=== PATIENT | female | born 1965 | race Caucasian/White ===

== ENCOUNTER 2020-12-03 21:57 | Emergency (ER) | payer SELFPAY ==
[2020-12-03 21:59] VITALS: BP 153/86; PULSE 69; RESP 14; TEMP 36.4; O2SAT 95; BMI 30.1
--- NOTE | 2020-12-03 22:24 | CT_ITS ---
PROCEDURE: CT ABDOMEN PELVIS W CON CLINICAL INDICATION: abd pain COMPARISON: No exams were available for comparison TECHNIQUE: IV Contrast: 75ML OPTIRAY 350 Oral Contrast none given Axial images obtained with sagittal and coronal reformats. All CT scans at the facility use one or more dose reduction, viz: automated exposure control, ma/kV adjustment per patient size (including targeted exams where dose is matched to indication, i.e. head), or iterative reconstruction technique. FINDINGS: Lower thorax: No acute finding ABDOMEN: Liver: No masses or biliary dilatation. Gallbladder: Post cholecystectomy Pancreas: No masses or peripancreatic fluid collections. Spleen: unremarkable Adrenals: unremarkable Kidneys/ureters: unremarkable ABDOMEN & PELVIS: Stomach bowel: Nondistended. No obvious mass or thickening. The proximal and mid small bowel appear normal. There is some fecal material in the distal small bowel suggesting delayed transit. There is liquid stool in the cecum and ascending colon and proximal transverse colon consistent with history of diarrhea. Peritoneum: There is evidence of diastasis recti in the mid abdomen. Lymph nodes: There are few scattered nodes at the root of the mesentery Vasculature: No evidence of abdominal aortic aneurysm. No retroperitoneal hemorrhage evident. Bones: No acute fracture PELVIS: Reproductive: The uterus is normal in size and in the midline. There is a pessary present Bladder: The urinary bladder is decompressed and not adequately evaluated, there is no free fluid in the pelvis. Appendix: Not delay visualized but no pericecal inflammatory changes. IMPRESSION: 1. Moderate diastasis recti. 2. Mildly dilated small bowel with some feces in the distal small bowel, but there is no evidence of bowel obstruction. 2. Liquid stool right and transverse colon consistent with history of diarrhea Dictated by: Dr. Dionisio Hood MD 12/04/2020 09:29 Dr. Dionisio Hood MD in [place] 12/04/2020 09:29
--- NOTE | 2020-12-03 22:24 | [facility].EDNVD ---
ED Disposition Clinical Impression: Mesenteric panniculitis Disposition: Home, Self-Care Condition on Discharge: Good Instructions: DI for Acute Abdominal Pain Additional Instructions: use meds and see pcp for follow up Prescriptions: predniSONE [Prednisone 20mg Tab] 20 mg PO BID #10 tab Transmission Status: Pending to [id number] Referrals: Tonia Bustillos APRN [Primary Care Provider] - - Critical Care Critical Care Time: No Attestation: On 12/03/20, the high probability of a clinically significant, sudden or life threatening deterioration of the following system(s) required my full and direct attention, intervention and personal management. The time I documented below is in addition to time spent performing reported procedures but includes the following listed in this critical care notation. Medical Decision Making - Medical Records Medical records reviewed: Yes: I reviewed the patient's medical records. - Ismael Inquiry Pt receiving controlled substance: No Vital Signs: 12/03/20 21:59 Temperature 97.5 F L Temperature Source Oral Pulse Rate [Left Radial] 69 Respiratory Rate 14 Blood Pressure [Right Arm] 153/86 H Blood Pressure Mean [Right Arm] 108 Blood Pressure Source [Right Arm] Automatic Cuff Blood Pressure Position [Right Arm] Supine 02 Sat by Pulse Oximetry 95 Oxygen Delivery Method Room Air - Lab Data Lab results reviewed: Yes: I reviewed the patient's lab results. Lab Results 12/03/20 22:10: Urine Color Yellow, Urine Appearance Clear, Urine pH 7.0, Ur Specific [place] 1.010, Urine Protein Negative, Urine Glucose (UA) Negative, Urine Ketones Negative, Urine Blood Negative, Urine Nitrate Negative, Urine Bilirubin Negative, Urine Urobilinogen 0.2, Ur Leukocyte Esterase Trace, Urine RBC None, Urine WBC 3-5, Ur Squamous Epith Cells Occasional, Urine Bacteria None 12/03/20 22:20: WBC 6.5, RBC 5.00, Hgb 14.4, Hct 43.2, MCV 86.4, MCH 28.8, MCHC 33.3, RDW 12.9, Plt Count 201, MPV 7.4, Neut % (Auto) 43.7, Lymph % (Auto) 46.7, [place] % (Auto) 6.0, Eos % (Auto) 2.8, Baso % (Auto) 0.8, Neut # (Auto) 2.9, Lymph # (Auto) 3.1, [place] # (Auto) 0.4, Eos # (Auto) 0.2, Baso # (Auto) 0.1, ESR 13 12/03/20 22:20: Sodium 140, Potassium 3.7, Chloride 102, Carbon Dioxide 27, Anion Gap 14.7, BUN 11, Creatinine 0.70, Estimated Creat Clear 109, Estimated GFR 87, Est GFR ( Amer) 105, Glucose 97, Calcium 9.7, Total Bilirubin 0.4, Direct Bilirubin 0.0, Conjugated Bilirubin 0.0, Indirect Bilirubin 0.4, Unconjugated Bilirubin 0.5, AST 46 H, ALT 62, Alkaline Phosphatase 87, C-Reactive Protein 1.3, Total Protein 7.7, Albumin 5.0, Amylase 65, Lipase 83, Procalcitonin 0.046 Result diagrams: 12/03/20 22:20 12/03/20 22:20 Orders (Tests/Meds): ED MEDICATIONS Generic Name Dose Route Start Last Admin Trade Name Freq PRN Reason Stop Dose Admin Sodium Chloride 1,000 mls @ 999 mls/hr 12/03/20 22:30 12/03/20 22:29 Sod Chlor 0.9% 1000ml Bag IV 12/03/20 23:30 999 mls/hr .[id number] MAURO Administration Discontinued Medications Generic Name Dose Route Start Last Admin Trade Name Freq PRN Reason Stop Dose Admin Iopamidol 75 ml 12/03/20 23:11 12/03/20 23:12 Iopamidol-370 (76%);100ml Bottle IV 12/03/20 23:12 75 ml ONCE ONE Administration Ketorolac Tromethamine 30 mg 12/03/20 22:27 12/03/20 22:29 Ketorolac 30mg/Ml Vial IV 12/03/20 22:28 30 mg ONCE ONE Administration Ondansetron HCl 4 mg 12/03/20 22:27 12/03/20 22:29 Ondansetron 4mg/2ml Vial IV 12/03/20 22:28 4 mg ONCE ONE Administration Sodium Chloride 10 ml 12/03/20 23:11 12/03/20 23:12 Sodium Chloride 0.9% 10ml Syr (Rad Only) IV 12/03/20 23:12 10 ml ONCE ONE Administration ORDERS Category Date Time Status CT abdomen pelvis w con Stat Cat Scan 12/03/20 22:24 Taken Full Resp Panel w/COVID ([facility]) Routine Lab 12/03/20 22:20 Received - CT Data CT Scan: Abdomen, Pelvis Time Received: 00:22 Prelimin
[2020-12-03 22:28] LABS: Microscopic, Urine URINE MICROSCOPIC (MICROSCOPIC)
[2020-12-03 22:28] LABS: Adenovirus,PCR Not Detected (NotDetected); Bordetella Pertussis Not Detected (NotDetected); Chlamydophila Pneumoniae, PCR Not Detected (NotDetected); Coronavirus 19, PCR Not Detected (NotDetected); Coronavirus 229E Not Detected (NotDetected); Coronavirus NL63 Not Detected (NotDetected); Coronavirus OC43 Not Detected (NotDetected); Coronovirus HKU1,PCR Not Detected (NotDetected); Human Metapneumovirus Not Detected (NotDetected); Influenza A, PCR Not Detected (NotDetected); Influenza AH1, 2009 Not Detected (NotDetected); Influenza AH1, PCR Not Detected (NotDetected); Influenza AH3,PCR Not Detected (NotDetected); Influenza B, PCR Not Detected (NotDetected); Mycoplasma Pneumoniae, PCR Not Detected (NotDetected); Parainfluenza 1, PCR Not Detected (NotDetected); Parainfluenza 2, PCR Not Detected (NotDetected); Parainfluenza 3, PCR Not Detected (NotDetected); Parainfluenza 4, PCR Not Detected (NotDetected); Respiratory Syncytial Virus Not Detected (NotDetected); Rhinovirus/Enterovirus Not Detected (NotDetected)
[2020-12-03 22:32] LABS: Basophils # 0.1 K/mm3 (0-0.2); Basophils % 0.8 % (0.1-2.0); Eosinophils # 0.2 K/mm3 (0.0-0.4); Eosinophils % 2.8 % (0.1-12.0); Hematocrit 43.2 % (37.0-47.0); Hemoglobin 14.4 g/dL (12.2-16.2); Lymphocytes # 3.1 K/mm3 (0.7-4.5); Lymphocytes % 46.7 % (10-50); Mean Corpuscular HGB Conc 33.3 g/dL (31.8-35.4); Mean Corpuscular Hemoglobin 28.8 pg (27.0-31.2); Mean Corpuscular Volume 86.4 fl (81-99); Mean Platelet Volume 7.4 fl (7.4-10.4); Monocytes # 0.4 K/mm3 (0.1-1.0); Neutrophils # 2.9 K/mm3 (1.8-7.8); Neutrophils % 43.7 % (37.0-80.0); Platelet Count 201 K/mm3 (142-424); Red Cell Distribution Width 12.9 % (11.5-17.5); White Blood Count 6.5 K/mm3 (4.8-10.8)
[2020-12-03 22:36] LABS: Appearance,Urine CLEAR (Clear); Bilirubin,Urine Negative (Negative); Blood, Urine Negative (Negative); Color,Urine YELLOW (Yellow); Glucose,Urine (UA) Negative (Negative); Ketones,Urine Negative (Negative); Leukocyte Esterase,Urine TRACE (Negative); Nitrate,Urine Negative (Negative); Protein,Urine Negative (Negative); Urobilinogen,Urine 0.2 EU/dl (0.2)
[2020-12-03 22:37] LABS: Alanine Aminotransferase 62 U/L (12-78); Alkaline Phosphatase 87 U/L (38-126); Amylase 65 U/L (30-110); Anion Gap 14.7 mEq/L (5-15); Aspartate Amino Transferase 46 U/L (14-36); Bilirubin,Indirect 0.4 mg/dL (0.0-0.9); Bilirubin,Total 0.4 mg/dl (0.2-1.3); Bilirubin,Unconjugated 0.5 mg/dL (0.0-1.1); Blood Urea Nitrogen 11 mg/dl (7-17); Calcium 9.7 mg/dl (8.4-10.2); Carbon Dioxide 27 mmol/L (22.0-30.0); Chloride 102 mmol/L (98-107); Creatinine Clearance Estimated 109 mL/min (50-200); Estimated Glomerular Filt Rate 87 ml/min (>60); GFR (African American) 105 ML/MIN (>60); Glucose 97 mg/dl (74-100); Lipase 83 U/L (23-300); Potassium 3.7 mmoL/L (3.5-5.1); Sodium 140 mmol/L (136-145); Total Protein,Serum 7.7 g/dl (6.3-8.2)
[2020-12-03 22:43] LABS: C-Reactive Protein 1.3 mg/L (0-4)
[2020-12-03 22:45] LABS: Squamous Epithelial Cell,Urine Occasional #/hpf (0-5)
[2020-12-03 22:56] LABS: Procalcitonin 0.046 ng/mL (0.0-2.0)
[2020-12-03 23:17] LABS: Erythrocyte Sedimentation Rate 13 mm/hr (0-30)
[2020-12-03 23:29] VITALS: BP 150/88; PULSE 63; RESP 16; O2SAT 99
[2020-12-04 00:34] VITALS: BP 155/81; PULSE 75; RESP 18; TEMP 36.7; O2SAT 98
== END 2020-12-04 00:46 | disposition home or self-care (01) ==
PROVIDERS: Emergency Provider Emergency Medicine; PCP Nurse Practitioner Family
DX: K65.4 Sclerosing mesenteritis (principal)
CPT/HCPCS: 74177; 80048; 80076; 81001; 82150; 83690; 84145; 85025; 85651; 86140; 87581; 87633; 87798; 96365; 96375; 99283; J2405; Q9967